=== PATIENT | female | born 1940 | race Caucasian/White ===

== ENCOUNTER 2016-03-28 12:25 | Outpatient (CLI) | payer MEDICARE, OTHER ==
[2013-10-20 02:09] VITALS: BP 148/83
== END 2016-03-28 12:26 ==
LOC: LAB 12:25
PROVIDERS: ATTEND Family Medicine
DX: Z51.81 Encounter for therapeutic drug level monitoring (principal); Z79.01 Long term (current) use of anticoagulants; I48.91 Unspecified atrial fibrillation
CPT/HCPCS: 36415; 85610

== ENCOUNTER 2016-04-04 12:30 | Outpatient (CLI) | payer MEDICARE, OTHER ==
[2013-10-20 02:09] VITALS: BP 148/83
== END 2016-04-04 12:32 ==
LOC: LAB 12:30
PROVIDERS: ATTEND Family Medicine
DX: Z51.81 Encounter for therapeutic drug level monitoring (principal); Z79.01 Long term (current) use of anticoagulants; I48.91 Unspecified atrial fibrillation
CPT/HCPCS: 36415; 85610

== ENCOUNTER 2016-05-18 10:14 | Outpatient (CLI) | payer MEDICARE, OTHER ==
[2013-10-20 02:09] VITALS: BP 148/83
== END 2016-05-18 10:15 ==
LOC: LAB 10:14
PROVIDERS: ATTEND Family Medicine
DX: Z51.81 Encounter for therapeutic drug level monitoring (principal); Z79.01 Long term (current) use of anticoagulants; I48.91 Unspecified atrial fibrillation
CPT/HCPCS: 36415; 85610

== ENCOUNTER 2016-06-06 07:53 | Outpatient (CLI) | payer MEDICARE, OTHER ==
[2013-10-20 02:09] VITALS: BP 148/83
== END 2016-06-06 07:55 ==
LOC: LAB 07:53
PROVIDERS: ATTEND Family Medicine
DX: Z51.81 Encounter for therapeutic drug level monitoring (principal); Z79.01 Long term (current) use of anticoagulants; I48.91 Unspecified atrial fibrillation
CPT/HCPCS: 36415; 85610

== ENCOUNTER 2016-08-10 07:13 | Outpatient (CLI) | payer MEDICARE, OTHER ==
[2013-10-20 02:09] VITALS: BP 148/83
== END 2016-08-10 07:15 ==
LOC: LAB 07:13
PROVIDERS: ATTEND Family Medicine
DX: I82.409 Acute embolism and thrombosis of unspecified deep veins of unspecified lower extremity (principal)
CPT/HCPCS: 36415; 85610

== ENCOUNTER 2017-05-10 07:27 | Outpatient (CLI) | payer MEDICARE, OTHER ==
[2013-10-20 02:09] VITALS: BP 148/83
[2017-05-10 08:43] LABS: eGFR (African) > 60; eGFR (Non-African) > 60
== END 2017-05-10 07:30 ==
LOC: LAB 07:27
PROVIDERS: ATTEND Family Medicine
DX: I48.91 Unspecified atrial fibrillation (principal); Z51.81 Encounter for therapeutic drug level monitoring; Z79.01 Long term (current) use of anticoagulants; E78.5 Hyperlipidemia, unspecified
CPT/HCPCS: 36415; 80053; 80061; 80162; 85610

== ENCOUNTER 2019-02-20 16:13 | Outpatient (CLI) | payer MEDICARE, OTHER ==
[2013-10-20 02:09] VITALS: BP 148/83
--- NOTE | 2019-02-20 22:18 | Diagnostic Imaging Report ---
PATIENT MR#: [id number] PATIENT PATIENT NAME: KITA LAINEZ DATE OF : 1940 REFERRING PHYSICIAN: Tara Arrington EXAM DATE: 02/20/2019 ACCESSION NUMBER: [id number] EXAM DESCRIPTION: RT HIP 2VIEW COMPLETE CLINICAL HISTORY: PAIN IN RT UPPER LEG FOR X1 MONTH AFTER PLAYING PICKLE BALL COMPARISON: No study for comparison is available at the time of interpretation. TECHNIQUE: DX right hip, 2 views Osseous structures: The osseous structures are intact with no evidence of fracture. Joint spaces: The bones are well aligned, without dislocation. No articular surface abnormality is no taran. Soft tissues: There is calcification within the gluteus tendon insertion on the greater trochanter. IMPRESSION: No evidence of hip fracture. Read by: Dr. Matt Cedillo Transcribed by: Matt Cedillo Transcribed Date: 02/20/2019 10:17:13 PM Electronically signed by: Dr. Matt Cedillo Date signed: 02/20/2019 10:17:13 PM
== END 2019-02-20 16:23 ==
LOC: RAD 16:13
PROVIDERS: ATTEND Family Medicine
DX: M25.551 Pain in right hip (principal)
CPT/HCPCS: 73502